=== PATIENT | male | born 1980 | race Caucasian/White ===

== ENCOUNTER 2019-07-24 03:59 | Observation (INO) | payer BC ==
[2019-07-24] MEDS ORDERED: ASPIRIN 81 MG CHEWABLE TABLET PO ONE (04:05)
[2019-07-24] MEDS ORDERED: NITROGLYCERIN 0.4MG SL TABLET #25 BTL SL PRN ×2 (04:05→05:18)
[2019-07-24] MEDS ORDERED: NITROGLYCERIN 0.4MG SL TABLET #25 BTL SL ONE (04:13)
--- NOTE | 2019-07-24 04:14 | Emergency Department Record ---
History of Present Illness - General Chief Complaint: Chest Pain Stated Complaint: CHEST PAIN Time Seen by Provider: 07/24/19 04:00 Source: Patient Mode of Arrival: Ambulatory Limitations: No limitations - History of Present Illness Initial Comments: pt awoke w cp that was squeezing, with n and sob. the pain radiated to his l arm. he was not diaphoretic. he had something similar 6 yrs ago and was seen at [facility] and was told it 'was a muscle around my heart'. the pt smokes, has hi chol, htn, and fam hx in that his father had an mi in his late 30s and when he was 43. pt has had no trips or pain in his legs. the pain is now gone. it lasted about 45min MD Complaint: Chest pain Onset/Timin -: Minutes(s) Onset: Awoke with symptoms Pain Location: Left chest Pain Radiation: LUE Severity: Moderate Quality: Heaviness Consistency: Now resolved Improves With: Nothing Worsens With: Nothing Anginal Symptoms: Dyspnea, Nausea - Related Data Home Medications Medication Instructions Recorded Confirmed Last Taken No Home Med [NO HOME MEDS] 07/24/19 07/24/19 Unknown Allergies Allergy/AdvReac Type Severity Reaction Status Date / Time cefixime [From Suprax] Allergy ANAPHYLAXIS Verified 07/24/19 04:09 Review of Systems Reviewed: No additional complaints except as noted below Constitutional: Reports: As per HPI. Denies: Chills, Fever, Malaise, Night sweats, Weakness, Weight change Eyes: Reports: As per HPI. Denies: Eye discharge, Eye pain, Photophobia, Vision change ENT: Reports: As per HPI. Denies: Congestion, Dental pain, Ear pain, Epistaxis, Hearing loss, Throat pain Respiratory: Reports: As per HPI, Dyspnea. Denies: Cough, Hemoptysis, Stridor, Wheezes Cardiovascular: Reports: As per HPI, Chest pain. Denies: Arrhythmia, Dyspnea on exertion, Edema, Murmurs, Orthopnea, Palpitations, Paroxysmal nocturnal dyspnea, Rheumatic Fever, Syncope Endocrine: Reports: As per HPI. Denies: Fatigue, Heat or cold intolerance, Polydipsia, Polyuria Gastrointestinal: Reports: As per HPI, Nausea. Denies: Abdominal pain, Constipation, Diarrhea, Hematemesis, Hematochezia, Melena, Vomiting Genitourinary: Reports: As per HPI. Denies: Dysuria, Frequency, Hematuria, Incontinence, Retention, Testicular pain, Testicular mass, Urgency Musculoskeletal: Reports: As per HPI. Denies: Arthralgia, Back pain, Gout, Joint swelling, Myalgia, Neck pain Skin: Reports: As per HPI. Denies: Bruising, Change in color, Change in hair/nails, Lesions, Pruritus, Rash Neurological: Reports: As per HPI. Denies: Abnormal gait, Confusion, Headache, Numbness, Paresthesias, Seizure, Tingling, Tremors, Vertigo, Weakness Psychiatric: Reports: As per HPI. Denies: Anxiety, Auditory hallucinations, Depression, Homicidal thoughts, Suicidal thoughts, Visual hallucinations Hematological/Lymphatic: Reports: As per HPI. Denies: Anemia, Blood Clots, Easy bleeding, Easy bruising, Swollen glands Physical Exam - General General Appearance: Alert, Oriented x3, Cooperative, Mild distress - Head Head exam: Normal inspection - Eye Eye exam: Normal appearance, PERRL, EOMI Pupils: Normal accommodation - ENT ENT exam: Normal exam, Mucous membranes moist, Normal external ear exam, Normal orophraynx Ear exam: Normal external inspection. negative: External canal tenderness Nasal Exam: Normal inspection. negative: Discharge, Sinus tenderness Mouth exam: Normal external inspection, Tongue normal Teeth exam: Normal inspection. negative: Dental caries Throat exam: Normal inspection. negative: Tonsillar erythema, Tonsillar exudate - Neck Neck exam: Normal inspection, Full ROM. negative: Tenderness - Respiratory Respiratory exam: Normal lung sounds bilaterally. negative: Respiratory distress - Cardiovascular Cardiovascular Exam: Regular rate, Normal rhythm, Normal heart sounds - GI/Abdominal GI/Abdominal exam: Soft, Normal bowel sounds. negative: Tenderness - Rectal Rectal exam: Deferred - exam: Deferred - Extremities Extremities exam: Normal inspection, Full ROM, Normal capillary refill. negative: Tenderness - Back Back exam: Reports: Normal inspection, Full ROM. Denies: Muscle spasm, Rash noted, Tenderness - Neurological Neurological exam: Alert, CN II-XII intact, Normal gait, Oriented X3 - Psychiatric Psychiatric exam: Normal affect, Normal mood - Skin Skin exam: Dry, Intact, Normal color, Warm Course - Reevaluation(s) Reevaluation #1: 07/24/19 04:50 pt remains pain free. pts records obtained from [facility] show that pt was admitted to observation unit 6 yrs ago. he had negative troponins, neg ekgs and a suboptimal stress test. Medical Decision Making - Lab Data Result diagrams: 07/24/19 04:04 07/24/19 04:04 Disposition Disposition: Admit Clinical Impression: Chest pain Qualifiers: Chest pain type: unspecified Qualified Code(s): R07.9 - Chest pain, unspecified Disposition: Still a Patient at [facility] Decision to Admit: Admit from ER Decision to Admit Date: 07/24/19 Decision to Admit Time: 04:53 Forms: Patient Portal Access Quality - Quality Measures Quality Measures: N/A - Blood Pressure Screening Does Patient Have Any of the Following: Active Dx of HTN Blood Pressure Classification: Hypertensive Reading Systolic Measurement: 192 Diastolic Measurement: 129 Screening for High Blood Pressure: Patient Exclusion, Hx of HTN [G9744]
[2019-07-24 04:17] LABS: ABSOLUTE NEUTROPHIL COUNT 6.63; BASO % 0.9 % (0-6); EOS % 3.4 % (0-6); GRAN % 48.2 % (47-80); HEMATOCRIT 43.7 % (42.0-52.0); LYMPH % 38.8 % (16-45); MEAN CELL VOLUME 84.7 fl (81-97); MEAN CORPUSCULAR HEMOGLOBIN 29.1 pg (27-33); MEAN CORPUSCULAR HGB CONC 34.3 g/dl (32-36); MONO % 8.7 % (0-9); PLATELET COUNT 295 K/uL (130-400); RED BLOOD COUNT 5.16 M/uL (4.40-5.70); RED CELL DISTRIBUTION WIDTH 13.8 % (11.5-14.5); WHITE BLOOD COUNT W/O DIFF 13.7 K/uL (4.2-12.2)
[2019-07-24 04:30] LABS: BLOOD UREA NITROGEN 9 mg/dL (6-20); CREATININE 0.7 mg/dL (0.7-1.2); EST GLOMERULAR FILTRATION RATE > 60 mL/min
[2019-07-24 04:31] LABS: TOTAL PROTEIN 6.3 g/dL (6.6-8.7)
[2019-07-24 04:33] LABS: GLUCOSE,RANDOM 254 mg/dL (74-109)
[2019-07-24 04:35] LABS: ALB/GLOB RATIO 1.4 (1.1-1.8); ALBUMIN 3.7 g/dL (4.0-5.0); ALT/SGPT 15 U/L (<41); AST/SGOT 14 U/L (10.0-50.0)
[2019-07-24 04:36] LABS: ALKALINE PHOSPHATASE 111 U/L (40-129); CREATINE PHOSPHOKINASE 55 U/L (39-308)
[2019-07-24 04:38] LABS: CKMB 1.8 ng/mL (<6.73)
[2019-07-24] MEDS ORDERED: ACETAMINOPHEN 500 MG TABLET PO PRN (05:18)
[2019-07-24] MEDS ORDERED: TEMAZEPAM 15 MG CAPSULE PO PRN (05:18)
--- NOTE | 2019-07-24 09:14 | History & Physical ---
History of Present Illness - Date of Service Date of Service for History & Physical: 07/24/19 - History of Present Illness Admitting Diagnosis: chest pain History of Present Illness: Mr. Morales is a 39 y/o male who presented with sudden onset chest pressure while sleeping last night. The patient reports that he woke up suddenly after feeling pain of his left chest which was pressure like and squeezing, 10/10 in severity and radiating to his left arm. The patient says the symptoms lasted for about 30 minutes and then he had his daughter drive him in to the ED. The patient reports that he has had symptoms like this before and was seen in [facility] ED some years ago. There was no indication of coronary artery disease at that time. He reports subsequent stress test which he wsa not able to complete. He does have history of hypertension and type II diabetes which he says are both diet controlled and he takes no medications. He says that he has been stressed lately with both work and home situations and thinks this could perhaps be contributing to his symptoms. Patient admitted to [facility] for observation to rule out ACS. On evaluation this morning the patient has no complaint of chest pain and is asking when he will be able to go home. ED course: ECG: NSR, Troponins negative x 1, glucose 254, WBCs 13.7. CXR : no acute cardiopulmonary findings. Medications administered: ASA 325mg x 1. PCP: Dr. Jonnathan Strauss. Travel Screening - Travel/Exposure Within Last 30 Days Have you traveled within the last 30 days?: No - Travel/Exposure Within Last Year Have you traveled outside the [place] in the last year?: Yes Location Detail:: [place] 02/11 - Additonal Travel Details Have you been exposed to anyone with a communicable illness?: No - Travel Symptoms Symptom Screening: None Review of Systems Constitutional: Reports: As per HPI. Denies: Chills, Fever, Malaise, Night sweats, Weakness, Weight change Eyes: Reports: As per HPI. Denies: Eye discharge, Eye pain, Photophobia, Vision change ENT: Reports: As per HPI. Denies: Congestion, Dental pain, Ear pain, Epistaxis, Hearing loss, Throat pain Respiratory: Reports: As per HPI, Dyspnea. Denies: Cough, Hemoptysis, Stridor, Wheezes Cardiovascular: Reports: As per HPI, Chest pain. Denies: Arrhythmia, Dyspnea on exertion, Edema, Murmurs, Orthopnea, Palpitations, Paroxysmal nocturnal dyspnea, Rheumatic Fever, Syncope Endocrine: Reports: As per HPI. Denies: Fatigue, Heat or cold intolerance, Polydipsia, Polyuria Gastrointestinal: Reports: As per HPI, Nausea. Denies: Abdominal pain, Constipation, Diarrhea, Hematemesis, Hematochezia, Melena, Vomiting Genitourinary: Reports: As per HPI. Denies: Dysuria, Frequency, Hematuria, Incontinence, Retention, Testicular pain, Testicular mass, Urgency Musculoskeletal: Reports: As per HPI. Denies: Arthralgia, Back pain, Gout, Joint swelling, Myalgia, Neck pain Skin: Reports: As per HPI. Denies: Bruising, Change in color, Change in hair/nails, Lesions, Pruritus, Rash Neurological: Reports: As per HPI. Denies: Abnormal gait, Confusion, Headache, Numbness, Paresthesias, Seizure, Tingling, Tremors, Vertigo, Weakness Psychiatric: Reports: As per HPI. Denies: Anxiety, Auditory hallucinations, Depression, Homicidal thoughts, Suicidal thoughts, Visual hallucinations Hematological/Lymphatic: Reports: As per HPI. Denies: Anemia, Blood Clots, Easy bleeding, Easy bruising, Swollen glands Past Medical History - SOCIAL HISTORY Smoking Status: Current every day smoker Alcohol Use: Rare Drug Use: None - RESPIRATORY Hx Respiratory Disorders: No - CARDIOVASCULAR Hx Cardio Disorders: No Hx Chest Pain: Yes Hx Edema: Yes - NEURO Hx Neuro Disorders: No - GI Hx GI Disorders: No - Hx Genitourinary Disorders: No - ENDOCRINE Hx Endocrine Disorders: Yes Hx Diabetes: Yes (type 2) - MUSCULOSKELETAL Hx Musculoskeletal Disorders: No - PSYCH Hx Psych Problems: Yes Hx Anxiety: Yes Hx Depression: Yes Family Medical History Any Significant Family History?: Yes Hx Heart Disease: Father Hx Kidney Disease: Father H&P Meds/Allergies - Allergies Allergies: Allergies Allergy/AdvReac Type Severity Reaction Status Date / Time cefixime [From Suprax] Allergy ANAPHYLAXIS Verified 07/24/19 04:09 - Home Medications Home Medications Medication Instructions Recorded Confirmed Last Taken No Home Med [NO HOME MEDS] 07/24/19 07/24/19 Unknown - Active Medications Active Medications: Current Medications Acetaminophen (Tylenol 500mg Tab) 1,000 mg PO Q6H PRN PRN Reason: PAIN - MILD(1-4)/FEVER Aspirin (Ecotrin (Ec)) 325 mg PO DAILY MERYL Nitroglycerin (Nitrostat 0.4mg) 0.4 mg SL Q5MIN PRN PRN Reason: CHEST PAIN Temazepam (Restoril) 15 mg PO QHS PRN PRN Reason: INSOMNIA Physical Exam - Vital Signs Vital Signs: Vital Signs - Last 24 Hrs Temp Pulse Pulse Pulse Pulse Resp BP 07/24/19 07:00 99.1 F 72 16 07/24/19 05:46 16 07/24/19 05:18 97.9 F 74 18 07/24/19 05:08 81 07/24/19 04:15 74 07/24/19 04:12 97.8 F 76 07/24/19 04:00 79 20 192/129 BP Pulse Ox 07/24/19 07:00 169/100 99 07/24/19 05:46 07/24/19 05:18 167/106 100 07/24/19 05:08 161/108 97 07/24/19 04:15 166/117 97 07/24/19 04:12 176/113 97 07/24/19 04:00 97 - General General Appearance: Alert, Oriented x3, Cooperative, Mild distress Limitations: No limitations - Head Head exam: Normal inspection - Eye Eye exam: Normal appearance, PERRL, EOMI Pupils: Normal accommodation - ENT ENT exam: Normal exam, Mucous membranes moist, Normal external ear exam, Normal orophraynx Ear exam: Normal external inspection. negative: External canal tenderness Nasal Exam: Normal inspection. negative: Discharge, Sinus tenderness Mouth exam: Normal external inspection, Tongue normal Teeth exam: Normal inspection. negative: Dental caries Throat exam: Normal inspection. negative: Tonsillar erythema, Tonsillar exudate - Neck Neck exam: Normal inspection, Full ROM. negative: Tenderness - Respiratory Respiratory exam: Normal lung sounds bilaterally. negative: Respiratory distress - Cardiovascular Cardiovascular Exam: Regular rate, Normal rhythm, Normal heart sounds - GI/Abdominal GI/Abdominal exam: Soft, Normal bowel sounds. negative: Tenderness - Rectal Rectal exam: Deferred - exam: Deferred - Extremities Extremities exam: Normal inspection, Full ROM, Normal capillary refill. negative: Tenderness - Back Back exam: Reports: Normal inspection, Full ROM. Denies: Muscle spasm, Rash noted, Tenderness - Neurological Neurological exam: Alert, CN II-XII intact, Normal gait, Oriented X3 - Psychiatric Psychiatric exam: Normal affect, Normal mood - Skin Skin exam: Dry, Intact, Normal color, Warm Results - Labs Result Diagrams: 07/24/19 04:04 07/24/19 04:04 Labs Last 24 Hours: Laboratory Results - last 24 hr 07/24/19 07/24/19 07/24/19 04:04 04:04 04:04 WBC 13.7 H RBC 5.16 Hgb 15.0 Hct 43.7 MCV 84.7 MCH 29.1 MCHC 34.3 RDW 13.8 Plt Count 295 MPV 11.0 H Gran % 48.2 Lymphocytes % 38.8 Monocytes % 8.7 Eosinophils % 3.4 Basophils % 0.9 Absolute Neutrophils 6.63 D-Dimer 0.19 Sodium 140 Potassium 3.4 Chloride 103 Carbon Dioxide 23.0 Anion Gap 14.0 BUN 9 Creatinine 0.7 Estimated GFR > 60 Random Glucose 254 H Calcium 9.8 Total Bilirubin 0.30 AST 14 ALT 15 Alkaline Phosphatase 111 Creatine Kinase 55 CK-MB (CK-2) 1.8 Troponin T < 0.010 Total Protein 6.3 L Albumin 3.7 L Globulin 2.6 Albumin/Globulin Ratio 1.4 Triglycerides Cholesterol LDL Cholesterol Measurd VLDL Cholesterol HDL Cholesterol 07/24/19 07/24/19 04:04 05:18 WBC RBC Hgb Hct MCV MCH MCHC RDW Plt Count MPV Gran % Lymphocytes % Monocytes % Eosinophils % Basophils % Absolute Neutrophils D-Dimer Sodium Potassium Chloride Carbon Dioxide Anion Gap BUN Creatinine Estimated GFR Random Glucose Calcium Total Bilirubin AST ALT Alkaline Phosphatase Creatine Kinase CK-MB (CK-2) Cancelled Troponin T Total Protein Albumin Globulin Albumin/Globulin Ratio Triglycerides 116 Cholesterol 135 LDL Cholesterol Measurd 99.0 VLDL Cholesterol 23 HDL Cholesterol 30 L VTE H&P Assessment - Risk for VTE Risk for VTE: No Risk Level: Low Risk Assessment Date: 07/24/19 Risk Assessment Time: 09:10 VTE Orders Placed or Will Be Placed: No VTE Reason for No Prophylaxis: Not Indicated Plan - Detailed Diagnosis and Plan (1) Chest pain Current Visit: Yes Status: Acute Qualifiers: Chest pain type: unspecified Qualified Code(s): R07.9 - Chest pain, unspecified Base Code: R07.9 - CHEST PAIN, UNSPECIFIED Comment: 07/24/19: - ECG: NSR, no acute ST-T changes, Qtc WNL - No acute arrhythmias on secured entrance monitor. - Troponin negative x 1, serial draw pending. Stress test outpatient. - Risks for CAD: Obesity, DMII, smoking, FHX of CAD in father who in 40s. - ASA 325mg, Nitrostat 0.4mg Q5min PRN. - Cardiology consult pending. (2) Diabetes mellitus type II, uncontrolled Current Visit: Yes Status: Acute Base Code: E11.65 - TYPE 2 DIABETES MELLITUS WITH HYPERGLYCEMIA Comment: 07/24/19: - Random glucose 254, check Ha1c. - Not on any medications. Diet controlled. - Accuchecks Q12H. - Patient should be on PO glycemic control medication, statin and GOPI at discharge pending labs. (3) Uncontrolled stage 2 hypertension Current Visit: Yes Status: Acute Base Code: I10 - ESSENTIAL (PRIMARY) HYPERTENSION Comment: 07/24/19: - BP poorly controlled due to medication non-compliance. - Starting Amlodipine 10mg daily w/ holding parameters for SBP < 110. - Continuous secured entrance monitor. - Follow up with PCP for dose adjustment and second medication if needed. (4) Smoker Current Visit: Yes Status: Acute Base Code: F17.200 - NICOTINE DEPENDENCE, UNSPECIFIED, UNCOMPLICATED Comment: 07/24/19: - Pack years 20pk/yrs - Cessation counseled and nicotine patch ordered. - Nicotine patch ordered. (5) DVT prophylaxis Current Visit: Yes Status: Acute Base Code: Z29.9 - ENCOUNTER FOR PROPHYLACTIC MEASURES, UNSPECIFIED Comment: 07/24/19: - Pt is ambulatory and has minimal risk of DVT. (6) Full code status Current Visit: Yes Status: Acute Base Code: Z78.9 - OTHER SPECIFIED HEALTH STATUS Comment: 07/24/19: - Full code status.
[2019-07-24] MEDS ORDERED: ASPIRIN 325 MG TAB ENTERIC-COATED PO SCH (10:00)
[2019-07-24] MEDS ORDERED: AMLODIPINE BESYLATE 5MG TAB PO SCH (10:30)
[2019-07-24] MEDS ORDERED: NICOTINE 21 MG/24 HOUR PATCH TD SCH (10:45)
[2019-07-24] MEDS ORDERED: METFORMIN 500 MG TABLET PO SCH (13:17)
--- NOTE | 2019-07-24 13:17 | Discharge Summary ---
Providers Discharge Summary Date: 07/24/19 Date of admission: 07/24/19 05:08 Attending physician: JUANY FELTON Consults: Consult Orders 07/24/19 05:18 Consult NOW Consulting Provider: Anh Paris Physician Instructions: Reason For Exam: cp Physical Exam - Vital Signs Vital Signs: Vital Signs - Last 24 Hrs Temp Pulse Pulse Pulse Pulse Resp BP 07/24/19 09:00 72 16 07/24/19 07:00 99.1 F 72 16 07/24/19 05:46 16 07/24/19 05:18 97.9 F 74 18 07/24/19 05:08 81 07/24/19 04:15 74 07/24/19 04:12 97.8 F 76 07/24/19 04:00 79 20 192/129 BP Pulse Ox 07/24/19 09:00 07/24/19 07:00 169/100 99 07/24/19 05:46 07/24/19 05:18 167/106 100 07/24/19 05:08 161/108 97 07/24/19 04:15 166/117 97 07/24/19 04:12 176/113 97 07/24/19 04:00 97 - General General Appearance: Alert, Oriented x3, Cooperative, Mild distress Limitations: No limitations - Head Head exam: Normal inspection - Eye Eye exam: Normal appearance, PERRL, EOMI Pupils: Normal accommodation - ENT ENT exam: Normal exam, Mucous membranes moist, Normal external ear exam, Normal orophraynx Ear exam: Normal external inspection. negative: External canal tenderness Nasal Exam: Normal inspection. negative: Discharge, Sinus tenderness Mouth exam: Normal external inspection, Tongue normal Teeth exam: Normal inspection. negative: Dental caries Throat exam: Normal inspection. negative: Tonsillar erythema, Tonsillar exudate - Neck Neck exam: Normal inspection, Full ROM. negative: Tenderness - Respiratory Respiratory exam: Normal lung sounds bilaterally. negative: Respiratory distress - Cardiovascular Cardiovascular Exam: Regular rate, Normal rhythm, Normal heart sounds - GI/Abdominal GI/Abdominal exam: Soft, Normal bowel sounds. negative: Tenderness - Rectal Rectal exam: Deferred - exam: Deferred - Extremities Extremities exam: Normal inspection, Full ROM, Normal capillary refill. negative: Tenderness - Back Back exam: Reports: Normal inspection, Full ROM. Denies: Muscle spasm, Rash noted, Tenderness - Neurological Neurological exam: Alert, CN II-XII intact, Normal gait, Oriented X3 - Psychiatric Psychiatric exam: Normal affect, Normal mood - Skin Skin exam: Dry, Intact, Normal color, Warm Hospitalization - Hospitalization Admission Diagnosis: chest pain - Problem List/Discharge Diagnosis (1) Chest pain Current Visit: Yes Status: Acute Discharge Diagnosis: Chest pain type: unspecified Qualified Code(s): R07.9 - Chest pain, unspecified Base Code: R07.9 - CHEST PAIN, UNSPECIFIED Comment: 07/24/19: - ECG: NSR, no acute ST-T changes, Qtc WNL - No acute arrhythmias on lead level designer. - Troponin negative x 1, serial draw pending. Stress test outpatient. - Risks for CAD: Obesity, DMII, smoking, FHX of CAD in father who in 40s. - ASA 325mg, Nitrostat 0.4mg Q5min PRN. - Cardiology consult pending. (2) Diabetes mellitus type II, uncontrolled Current Visit: Yes Status: Acute Base Code: E11.65 - TYPE 2 DIABETES MELLITUS WITH HYPERGLYCEMIA Comment: 07/24/19: - Random glucose 254, check Ha1c. - Not on any medications. Diet controlled. - Accuchecks Q12H. - Patient should be on PO glycemic control medication, statin and GOPI at discharge pending labs. (3) Uncontrolled stage 2 hypertension Current Visit: Yes Status: Acute Base Code: I10 - ESSENTIAL (PRIMARY) HYPERTENSION Comment: 07/24/19: - BP poorly controlled due to medication non-compliance. - Starting Amlodipine 10mg daily w/ holding parameters for SBP < 110. - Continuous lead level designer. - Follow up with PCP for dose adjustment and second medication if needed. (4) Smoker Current Visit: Yes Status: Acute Base Code: F17.200 - NICOTINE DEPENDENCE, UNSPECIFIED, UNCOMPLICATED Comment: 07/24/19: - Pack years 20pk/yrs - Cessation counseled and nicotine patch ordered. - Nicotine patch ordered. (5) DVT prophylaxis Current Visit: Yes Status: Acute Base Code: Z29.9 - ENCOUNTER FOR PROPHYLACTIC MEASURES, UNSPECIFIED Comment: 07/24/19: - Pt is ambulatory and has minimal risk of DVT. (6) Full code status Current Visit: Yes Status: Acute Base Code: Z78.9 - OTHER SPECIFIED HEALTH STATUS Comment: 07/24/19: - Full code status. - Hospitalization Course Hospital Course: Mr. Morales is a 39 y/o male who presented with sudden onset chest pressure while sleeping last night. The patient reports that he woke up suddenly after feeling pain of his left chest which was pressure like and squeezing, 10/10 in severity and radiating to his left arm. The patient says the symptoms lasted for about 30 minutes and then he had his daughter drive him in to the ED. The patient reports that he has had symptoms like this before and was seen in [facility] ED some years ago. There was no indication of coronary artery disease at that time. He reports subsequent stress test which he wsa not able to complete. He does have history of hypertension and type II diabetes which he says are both diet controlled and he takes no medications. He says that he has been stressed lately with both work and home situations and thinks this could perhaps be contributing to his symptoms. Patient admitted to [facility] for observation to rule out ACS. On evaluation this morning the patient has no complaint of chest pain and is asking when he will be able to go home. Re-evaluation 1:13pm: Patient has no acute complaint. Cardiology reviewed and planned for exercise stress test while here but due to elevated diastolic blood pressure unable to perform. The patient's Ha1c is 10 and TSH 7. Plan for outpatient stress test with Dr. Paris in [place]. ED course: ECG: NSR, Troponins negative x 1, glucose 254, WBCs 13.7. CXR : no acute cardiopulmonary findings. Medications administered: ASA 325mg x 1. PCP: Dr. Jonnathan Strauss. Procedures: Imaging and X-Rays 07/24/19 04:37 CXR [CHEST 2 VIEWS] [RAD] Stat Cardiology Procedures 07/24/19 04:05 Dock Hand NOW EKG NOW 07/24/19 05:18 EKG QDX2@0600 07/24/19 11:25 Stress EKG/STD Treadmill NOW Abnormal Labs: Abnormal Lab Results 07/24/19 07/24/19 07/24/19 Range/Units 04:04 04:04 04:04 WBC 13.7 H (4.2-12.2) K/uL MPV 11.0 H (7.4-10.4) fl Random Glucose 254 H (74-109) mg/dL Hemoglobin A1c (4.0-6.00) % Total Protein 6.3 L (6.6-8.7) g/dL Albumin 3.7 L (4.0-5.0) g/dL HDL Cholesterol 30 L (40-60) mg/dL TSH (0.270-4.20) uIU/mL 07/24/19 07/24/19 Range/Units 04:04 04:04 WBC (4.2-12.2) K/uL MPV (7.4-10.4) fl Random Glucose (74-109) mg/dL Hemoglobin A1c 10.30 H (4.0-6.00) % Total Protein (6.6-8.7) g/dL Albumin (4.0-5.0) g/dL HDL Cholesterol (40-60) mg/dL TSH 7.44 H (0.270-4.20) uIU/mL Discharge Medications - Discharge Medications Prescriptions: Metformin HCl [Glucophage Ir] 500 mg PO BIDWM #60 tablet Lisinopril 10 mg PO DAILY #30 tablet Amlodipine Besylate [Norvasc] 5 mg PO DAILY #30 tab Home Medications: Ambulatory Orders Amlodipine Besylate [Norvasc] 5 mg PO DAILY #30 tab 07/24/19 [Last Taken Unknown] Lisinopril 10 mg PO DAILY #30 tablet 07/24/19 [Last Taken Unknown] Metformin HCl [Glucophage Ir] 500 mg PO BIDWM #60 tablet 07/24/19 [Last Taken Unknown] Discharge Plan - Discharge Instructions Diet at Discharge: Diabetic Diet, Low Fat, Low Cholesterol, Low Salt Diet Additional Instructions: Follow up with your PCP in 1 week to adjust the dose of your medications. Quality Measures - Quality Measures Quality Measures: Documentation of Current Medications in Medical Record, Screening for High Blood Pressure and F/U Documented - Current Medications Quality Measure: Measure #130: Documentation of Current Medications Documentation of Current Medications: <Current Medications Documented/Reviewed> [G8427] - Blood Pressure Screening Quality Measure: Screening for High Blood Pressure and Follow-Up Documented Does Patient Have Any of the Following: Active Dx of HTN Blood Pressure Classification: Hypertensive Reading Systolic Measurement: 192 Diastolic Measurement: 129 Screening for High Blood Pressure: Patient Exclusion, Hx of HTN [G9744] - Elder Abuse Suspicion Index EASI Reference Information: Lisha CLEMENS, Fatoumata C, Ezekiel D, Radha Freedman.Development and validation of a tool to assist physicians identification of elder abuse: The Elder Abuse Suspicion Index (EASI ). Journal of Elder Abuse and Neglect, 2008; 20 (3): 276-300.
[2019-07-24] MEDS ORDERED: LISINOPRIL 20 MG TABLET PO SCH (13:30)
--- NOTE | 2019-07-24 14:11 | RADIOLOGY REPORT ---
EXAM: CHEST, TWO VIEWS HISTORY: CHEST PAIN. TECHNIQUE: Frontal and lateral views of the chest were obtained. Comparison: None. FINDINGS: The heart size is at the upper limits of normal. The hilar and mediastinal borders are grossly unremarkable. No focal lung consolidations, effusions, or pneumothoraces are evident. No rib lesions discretely imaged. There is suggestion of a 12 mm nodular density at the left base. IMPRESSION: POSSIBLE PULMONARY NODULE ON THE LEFT. CT EXAMINATION CAN FURTHER INVESTIGATE. JOB NUMBER: [id number] [facility]
--- NOTE | 2019-07-25 07:20 | Medical Records Consult ---
REASON FOR CONSULTATION: Chest pain. HISTORY OF PRESENT ILLNESS: The patient is a morbidly obese 39-year-old gentleman with history of diabetes mellitus type 2 as well as hypertension who presented with complaints of chest pain. The patient says that he started having chest pain this morning which woke him up from sleep. The chest pain was a sharp pain in the center of the chest radiating to his left arm about 8/10 in severity and lasted about 30 minutes. He does not recall whether it was associated with diaphoresis or shortness of breath but he was scared enough that he sought medical attention and came to the emergency department. After half an hour of the chest pain, it got relieved by itself and since then he has not had any recurrence. The patient's initial EKG showed a right bundle-branch block and no acute changes were seen. His cardiac biomarkers have been within the normal limits. PAST MEDICAL HISTORY: The patient has a history of diabetes mellitus type 2 as well as hypertension; however, he tells me that he has lost over 100 pounds by eating right as well as going to the gym. With his weight loss, his blood pressure and diabetes have been well controlled. He used to take antihypertensives; however, he has not taken any in 6 months. The patient, however, does admit to drinking more than 2 liters of Coke every day. He denies any significant family history of coronary artery disease. REVIEW OF SYSTEMS: The patient denies any fever or chills. Denies any change in appetite. Denies any heat or cold intolerance. Denies any hematochezia or melena. PHYSICAL EXAMINATION: GENERAL: The patient is a morbidly obese 39-year-old gentleman who is sitting comfortably in bed and enjoying his lunch. VITAL SIGNS: His blood pressure on arrival to the hospital was 197/115 mmHg and his current blood pressure is 169/100 mmHg. His heart rate is 74 beats per minute. HEENT: Normocephalic and atraumatic. Pupils are equal and reactive to light. Extraocular muscles are intact. NECK: Supple. CARDIOVASCULAR: He has normal S1, S2. There is no JVD and no pedal edema. RESPIRATORY: Lungs are clear to auscultation bilaterally. ABDOMEN: Soft and nontender. NEUROLOGIC: Nonfocal. LABORATORY DATA: TSH is elevated at 7.44. His troponin was less than 0.010. White count is slightly elevated at 15.7 with a hemoglobin of 15, hematocrit of 43.7, platelet count of 295. His EKG shows sinus rhythm with right bundle-branch block and no acute changes are identified. ASSESSMENT AND PLAN: Chest pain. The patient's chest pain is fairly concerning, especially in the presence of risk factors with uncontrolled hypertension as well as uncontrolled diabetes with a hemoglobin A1c of 10.3. I recommended doing a treadmill stress test to which the patient agreed. However, when he arrived at the stress lab, his diastolic blood pressure was 115 and systolic was 175. Because of the very high blood pressure, we canceled the stress test. If the patient's second set of enzymes are normal, I would be okay with the patient getting discharged home and then having a stress test as an outpatient. Because of the patient's very uncontrolled diabetes and hypertension, I would recommend adding an GOPI inhibitor to the current antihypertensive, which is amlodipine, and the antihypertensives can then be titrated according to his blood pressure response on an outpatient basis. The patient's lipid profile is fairly adequate; however, given his history of diabetes, the patient will benefit from a moderate-intensity statin therapy as well. Thank you very much for involving us in the management of your patient. The patient will follow up with me as an outpatient and we will also do a stress test as an outpatient. CARLEY
== END 2019-07-24 15:04 | disposition home or self-care (01) ==
LOC: ER 03:59 → MEDSURG 05:08
PROVIDERS: ADMIT Internal Medicine; ATTEND Internal Medicine
DX: R07.9 Chest pain, unspecified (principal); R06.02 Shortness of breath; E11.65 Type 2 diabetes mellitus with hyperglycemia; R60.9 Edema, unspecified; F17.210 Nicotine dependence, cigarettes, uncomplicated; I10 Essential (primary) hypertension; E78.00 Pure hypercholesterolemia, unspecified; M79.602 Pain in left arm
CPT/HCPCS: 71046; 80053; 80061; 82550; 82553; 83036; 84443; 84484; 85025; 85379; 93005; 93010; 99236; 99285